=== PATIENT | female | born 1990 | race Caucasian/White ===

== ENCOUNTER 2022-06-07 23:49 | Emergency (ER) | payer MEDICAID ==
[~2022-06-07] VITALS: Ht 160 cm; Wt 90.7 kg
--- NOTE | 2022-06-08 00:10 | NUR ---
BIBS FOR C/O WORSENING MIGRAINE HEADACHE X 1 MONTH. PATIENT IS AAOX4, AMBULATORY, ABLE TO MAKE NEEDS KNOWN. ATTACHED TO MONITOR. VITALS CHECKED.
[2022-06-08] MEDS ORDERED: SUMATRIPTAN SUCCINATE 6 MG/0.5 ML VIAL SQ ONE ×2 (01:00→01:06)
[2022-06-08] MEDS ORDERED: METOCLOPRAMIDE HCL 10 MG/2 ML VIAL IV ONE (01:00)
[2022-06-08] MEDS ORDERED: IV NS 0.9% 1,000 ML BAG IV ONE (01:00)
--- NOTE | 2022-06-08 01:01 | NUR ---
DISCLAIMER SIGNED FOR NOT BEING
--- NOTE | 2022-06-08 01:01 | NUR ---
IV CANNULA G20 INSERTED ON RIGHT FA. FLUSHED. LINE IS PATENT
[2022-06-08] MEDS ORDERED: METOCLOPRAMIDE HCL 10 MG/2 ML VIAL ONE (01:06)
--- NOTE | 2022-06-08 01:10 | NUR ---
BROUGHT TO CT DEPT
[2022-06-08] MEDS ORDERED: SUMA100T16 PO (02:36)
[2022-06-08 02:47] VITALS: BP 128/65
--- NOTE | 2022-06-08 02:47 | NUR ---
IV CANNULA REMOVED
== END 2022-06-08 02:47 | disposition home or self-care (01) ==
LOC: ER 06-08 00:14
DX: G43.909 Migraine, unspecified, not intractable, without status migrainosus (principal); Z88.0 Allergy status to penicillin; Z79.899 Other long term (current) drug therapy
CPT/HCPCS: 99284; 96374; 70450; 96361; 96372; J3030; J2765; J7040

== ENCOUNTER 2022-10-30 19:11 | Emergency (ER) | payer MEDICAID ==
[~2022-10-30] VITALS: Ht 154.9 cm; Wt 95.3 kg
[~2022-10-30 19:11] MED LIST: SUMA100T16 PO
--- NOTE | 2022-10-30 19:49 | NUR ---
Bibself from home c/o vaginal bleeding since may, abdominal cramping worst the past 2 weeks. Pt A/Ox4. Tolerating R/A well with no Resp distress. Safety Measures in place.
--- NOTE | 2022-10-30 20:10 | NUR ---
URINE COLLECTED AND SENT TO LAB
[2022-10-30] MEDS: KETOROLAC TROMETHAMINE INJ 30 MG/ML VIAL IM ONE (20:29)
--- NOTE | 2022-10-30 20:29 | NUR ---
US TECH AT PT'S BEDSIDE
[2022-10-30 20:39] LABS: BILIRUBIN,URINE NEGATIVE (NEGATIVE); COLOR,URINE YELLOW (YELLOW); LEUKOCYTE ESTERASE ,URINE 2+ (NEGATIVE); NITRITE, URINE NEGATIVE (NEGATIVE); PROTEIN,URINE NEGATIVE (NEGATIVE); UGLUCOSE NEGATIVE (NEGATIVE); UROBILINOGEN,URINE 0.2 EU/dL (0.2)
--- NOTE | 2022-10-30 20:45 | NUR ---
PINION STAKER AT PT'S BEDSIDE
[2022-10-30 20:46] LABS: RBC,URINE 51-80 /HPF (0-2)
[2022-10-30 20:47] LABS: BACTERIA,URINE 3+ /HPF (None Seen); WBC,URINE 21-50 /HPF (0-3)
[2022-10-30 20:56] LABS: BASOPHILS % (AUTO) 0.2 % (0.0-2.0); EOSINOPHILS % (AUTO) 0.6 % (0.0-6.0); HEMATOCRIT 45 % (33-45); HEMOGLOBIN 14.8 g/dL (11.5-14.8); LYMPHOCYTES # (AUTO) 2.5 K/uL (0.8-4.8); LYMPHOCYTES % (AUTO) 19.2 % (20.0-44.0); MEAN CORPUSCULAR HGB CONC 33 g/dl (31.0-36.0); MEAN CORPUSCULAR VOLUME 88 fL (82-100); MONOCYTES # (AUTO) 0.7 K/uL (0.1-1.30); MONOCYTES % (AUTO) 5.7 % (2.0-12.0); NEUTROPHILS # (AUTO) 9.5 K/uL (1.8-8.9); NEUTROPHILS % (AUTO) 74.3 % (43.0-81.0); PLATELET COUNT (AUTO) 278 K/uL (150-450); RED BLOOD CELL COUNT(AUTO) 5.12 MIL/uL (4.0-5.2); WHITE BLOOD COUNT (AUTO) 12.8 K/uL (4.3-11.0)
[2022-10-30 21:04] LABS: CALCIUM, SERUM 8.9 mg/dL (8.5-10.1); CREATININE 0.7 mg/dL (0.6-1.3); POTASSIUM 3.6 mmol/L (3.5-5.1)
[2022-10-30] MEDS ORDERED: IBUP-1953 PO (21:54)
[2022-10-30] MEDS ORDERED: CIPR-262 PO (21:54)
[2022-10-30 22:01] VITALS: BP 147/64
--- NOTE | 2022-10-30 22:01 | NUR ---
Patient discharged to home in stable condition. RX Written and verbal after care instructions given. Patient verbalizes understanding of instruction. pt ambulatory with a steady gait
== END 2022-10-30 22:02 | disposition home or self-care (01) ==
LOC: ER 19:13
DX: N39.0 Urinary tract infection, site not specified (principal); N94.6 Dysmenorrhea, unspecified; G43.909 Migraine, unspecified, not intractable, without status migrainosus; Z79.899 Other long term (current) drug therapy; Z88.0 Allergy status to penicillin
CPT/HCPCS: 36415; 76856-TC; 80048-TC; 81001; 84702-TC; 85025-TC; 87086-TC

== ENCOUNTER 2023-05-27 14:50 | Emergency (ER) | payer MEDICAID ==
[~2023-05-27] VITALS: Ht 160 cm; Wt 81.6 kg
[~2023-05-27 14:50] MED LIST changes: +CIPR-262 PO; +IBUP-1953 PO
[2023-05-27 14:59] VITALS: BP 132/67; TEMP 98.4; O2SAT 100
[2023-05-27] MEDS ORDERED: ERYT3.5O9 EACHEYE (15:19)
[2023-05-27 16:28] LABS: PREGNANCY TEST URINE QUAL NEGATIVE (NEGATIVE)
[2023-05-27] MEDS ORDERED: ALBU18HF2 INH (16:39)
== END 2023-05-27 16:43 | disposition home or self-care (01) ==
LOC: ER 14:54
DX: H01.006 Unspecified blepharitis left eye, unspecified eyelid (principal); G43.909 Migraine, unspecified, not intractable, without status migrainosus; Z79.899 Other long term (current) drug therapy; Z88.0 Allergy status to penicillin
CPT/HCPCS: 84703-TC